=== PATIENT | male | born 1990 | race Two or more races ===

== ENCOUNTER 2019-02-13 00:26 | Emergency (ER) | payer SELFPAY ==
[2019-02-13] MEDS ORDERED: Bupivacaine 0.5% 10 ML SDV INJECT ONE (01:05)
[2019-02-13] MEDS ORDERED: Lidocaine 1% 10 ML MDV INJECT ONE (01:05)
--- NOTE | 2019-02-13 01:05 | EDM.PDOC ---
ED HPI GENERAL MEDICAL PROBLEM - General Chief Complaint: Laceration Stated Complaint: LEFT HAND INJURY ON JOB Time Seen by Provider: 02/13/19 00:52 Source of Information: Reports: Patient, Other (Order Management Specialist) History Limitations: Reports: No Limitations - History of Present Illness INITIAL COMMENTS - FREE TEXT/NARRATIVE: The patient states that he lacerated the volar aspect of his left 5th finger when a drill slipped while he was at work around 23:00 tonight. He is otherwise uninjured. He reports prior fractures to his left 4th and 5th metacarpals, but no other prior left hand injuries. The recent does not have a PCP. He does not recall when his last tetanus vaccination was. He has not received an influenza vaccine this season, but refused an offer for one tonight. - Related Data Allergies Allergy/AdvReac Type Severity Reaction Status Date / Time No Known Allergies Allergy Verified 02/13/19 00:37 Home Meds: Home Meds . [No Known Home Meds] 02/13/19 [History] Past Medical History Musculoskeletal History: Reports: Fracture (left 4th & 5th metacarpal fractures) - Past Surgical History HEENT Surgical History: Reports: Adenoidectomy, Tonsillectomy Social & Family History - Family History Family Medical History: Noncontributory - Tobacco Use Smoking Status *Q: Never Smoker Tobacco Use Within Last Twelve Months: Smokeless Tobacco (chews 1 can per week) - Caffeine Use Caffeine Use: Reports: Coffee - Alcohol Use Alcohol Use History: Yes Alcohol Use Frequency: Socially - Recreational Drug Use Recreational Drug Use: No - Living Situation & Occupation Living situation: Reports: Single, Other (with friends) Occupation: Employed (Drilling rig) Review of Systems - Review of Systems Review Of Systems: ROS reveals no pertinent complaints other than HPI. ED EXAM, GENERAL - Physical Exam Exam: See Below Exam Limited By: No Limitations General Appearance: Alert, WD/WN, No Apparent Distress Extremities: Other (There are 2 stellate lacerations + a small 3rd laceration primarily involving the volar aspect of the left 5th proximal phalanx, but extending over the volar aspect of the 5th MCP joint, as well. The patient is able to flex his finger with good strength. Neurovascular status of the left 5th finger is intact.) ED TRAUMA EXTREMITY PROCEDURES - Laceration/Wound Repair Left Hand Lac/Wound Length In cm: 3.5 Appearance: Subcutaneous, Stellate, Clean Distal NVT: Neuro & Vascular Intact, No Tendon Injury Anesthetic Type: Local Local Anesthesia - Lidocaine (Xylocaine): 1% Plain ( 50:50 admixture) Local Anesthesia - Bupivicaine (Marcaine): 0.5% Plain ( 50:50 admixture) Local Anesthetic Volume: 2cc Skin Prep: Providone-Iodine (Betadine) Exploration/Debridement/Repair: Wound Explored, In a Bloodless Field, Explored to Base, No Foreign Material Found Closed With: Sutures Suture Size: 3-0 # of Sutures: 10 Suture Type: Nylon (Ethilon), Interrupted, Simple Drain Placement: No Sterile Dressing Applied: Nurse Tetanus Status Addressed: Yes Complications: No Course - Vital Signs Last Recorded V/S: Last Vital Signs Temp 36.7 C 02/13/19 00:34 Pulse 75 02/13/19 00:34 Resp 16 02/13/19 00:34 BP 147/83 H 02/13/19 00:34 Pulse Ox 98 02/13/19 00:34 - Orders/Labs/Meds Orders: Active Orders 24 hr Category Date Time Status Vaccines to be Administered [RC] PER UNIT ROUTINE Care 02/13/19 01:06 Active Fingers Fifth Digit Lt F4 [CR] Stat Exams 02/13/19 00:46 Taken Meds: Medications Discontinued Medications Generic Name Dose Route Start Last Admin Trade Name Latanya PRN Reason Stop Dose Admin Bupivacaine HCl 10 ml 02/13/19 01:05 02/13/19 01:14 Sensorcaine-Mpf 0.5% INJECT 02/13/19 01:06 10 ml ONETIME ONE Administration Diphtheria/Tetanus/Acell Pertussis 0.5 ml 02/13/19 01:06 02/13/19 01:14 Adacel IM 02/13/19 01:07 0.5 ml .ONCE ONE Administration Lidocaine HCl 10 ml 02/13/19 01:05 02/13/19 01:14 Xylocaine 1% INJECT 02/13/19 01:06 10 ml ONETIME ONE Administration - Re-Assessments/Exams Free Text/Narrative Re-Assessment/Exam: 02/13/19 01:04 3-view radiographs of the patient's left 5th finger appear to be unremarkable. No fracture or dislocation identified. No bony injury to the volar aspect of the proximal phalanx. No foreign bodies seen. Formal read per the Radiologist. 02/13/19 02:35 The lacerations to the patient's left hand were sutured with a total of 10 simple truck did sutures using 3-0 Ethilon. The patient tolerated the procedure well. A sterile dressing will be placed by his nurse. The patient has been advised to keep the wound clean and when he bathes daily, but he should not soak the wound or let it get wet during the day. The sutures should be ready for removal by 02/23/2019. The patient received a tetanus vaccination during this ED visit, but refused an influenza vaccine. Departure - Departure Time of Disposition: 02:37 Disposition: Home, Self-Care 01 Condition: Good Clinical Impression: Laceration of left hand - Discharge Information *PRESCRIPTION DRUG MONITORING PROGRAM REVIEWED*: Not Applicable *COPY OF PRESCRIPTION DRUG MONITORING REPORT IN PATIENT DANIEL: Not Applicable Instructions: Laceration Care, Adult, [id number] Referrals: PCP,None [Primary Care Provider] - Forms: ED Department Discharge Additional Instructions: You were seen in the emergency room after your left hand became lacerated by a drill at work. Workup in the ER included x-rays of your left 5th finger, which returned negative. No bony injury or foreign bodies were found. Your wounds were closed with a total of 10 sutures in the ER. Keep the wounds clean with ordinary soap and water when you bathe. You may apply a thin smear of some antibiotic ointment, if you choose, then cover with a clean dressing, daily. Keep the wounds clean and dry during the day. If the dressing should get wet, clean it, dry it, then reapply a clean dressing. Take [id number] ibuprofen, 2-3 tablets (400-600 mg) every 8 hours, with food, as needed for discomfort. The sutures should be ready for removal by 02/23/2019. They can be removed at a walk-in clinic, by a nurse at occupational health, or in the ER. We do not recommend that you try to remove the sutures yourself. Your wounds should not get infected, however, if you suspect that is an infection, because of significant pain, swelling, or drainage, please return to the ER for reevaluation. *You received a tetanus vaccination during your ER visit.* - My Orders Last 24 Hours: My Active Orders 02/13/19 00:46 Fingers Fifth Digit Lt F4 [CR] Stat 02/13/19 01:06 Vaccines to be Administered [RC] PER UNIT ROUTINE - Assessment/Plan Last 24 Hours: My Active Orders 02/13/19 00:46 Fingers Fifth Digit Lt F4 [CR] Stat 02/13/19 01:06 Vaccines to be Administered [RC] PER UNIT ROUTINE
[2019-02-13] MEDS ORDERED: Diphtheria,Pertussis(Acell),Tetanus Vaccine 0.5 ML Syringe IM ONE (01:06)
--- NOTE | 2019-02-13 07:07 | CR ---
Left 5th finger: Three views of the left 5th finger were obtained. Comparison: No previous study. Soft tissue swelling is seen. No fracture, dislocation or other bony abnormality is seen. Soft tissue air appears to be present. Impression: 1. Soft tissue swelling and soft tissue air. 2. No acute bony abnormality is identified. Diagnostic code #2
== END 2019-02-13 02:48 | disposition home or self-care (01) ==
LOC: JD.ED 00:26
DX: S61.217A Laceration without foreign body of left little finger without damage to nail, initial encounter (principal); F17.290 Nicotine dependence, other tobacco product, uncomplicated
CPT/HCPCS: 12002; 73140; 90471; 90715; 99283; J2001; J3490; 99282